=== PATIENT | male | born 1980 | race African-American/Black ===

== ENCOUNTER 2016-09-07 16:19 | Observation (INO) | payer BC, OTHER ==
[~2016-09-07] VITALS: Ht 188 cm; Wt 140.0 kg
[2016-09-07] VITALS (8 sets, daily range): BP systolic 137–177; BP diastolic 79–99; PULSE 63–93; RESP 18–20; TEMP 97.6–98.7; O2SAT 98–100
[~2016-09-07 16:19] MED LIST: PENI500T PO; TYLE3 PO; Z.0.NO CURRENT MEDS
--- NOTE | 2016-09-07 16:31 | PD ---
HPI Chief Complaint: Chest Pain Time Seen by Provider: 16:31 Travel History International Travel<30 days: No Contact w/Intl Traveler<30days: No Traveled to known affect area: No History of Present Illness HPI 36 YO M presents to the ED for evaluation of sharp, intermittent central chest pain. Asymptomatic on presentation. Comes on at rest,lasts ~30 minutes, resolves spontaneously, alleviated by laying down. Accompanied by nausea, diaphoresis, SOB, palpitations. Patient has never had a cardiac workup. Current smoker, has "never" seen a physician. Endorses multiple family members with MIs. Patient sought treatment today after an episode this AM. PFS Social History Alcohol Use: No Tobacco Use: Yes (1/2 PPD X 10 YEARS) Substance Use: No Allergies-Medications (Allergen,Severity, Reaction): Coded Allergies: No Known Allergies (Verified , 09/07/16) Reported Meds & Prescriptions Reported Meds & Active Scripts Active Tylenol #3 (Acetaminophen/Codeine Phosphate) 300 Mg/30 Mg Tab 1 Tab PO Q6HPRN FOR PAIN Pen Vk (Penicillin V Potassium) 500 Mg Tab 500 Mg PO QID Reported No Current [place]s (Miscellaneous Medication[place] [facility] [place] Except as stated in HPI: all other systems reviewed are Neg Physical Exam Narrative GENERAL: Obese black male in no acute distress. SKIN: Focused skin assessment warm/dry. HEAD: Normocephalic. EYES: No scleral icterus. No injection or drainage. NECK: Supple, trachea midline. No JVD or lymphadenopathy. CARDIOVASCULAR: Regular rate and rhythm without murmurs, gallops, or rubs. 2+ DP radial pulses bilaterally. CHEST: Nontender throughout without deformity or crepitus. No retractions or use of accessory muscles. RESPIRATORY: Breath sounds clear and equal bilaterally. No accessory muscle use. GASTROINTESTINAL: Abdomen soft, protuberant, non-tender, nondistended. Active bowel sounds. MUSCULOSKELETAL: No cyanosis, or edema. BACK: Nontender without obvious deformity. No CVA tenderness. Data Data Last Documented VS Vital Signs Date Time Temp Pulse Resp B/P Pulse Ox O2 Delivery O2 Flow Rate FiO2 09/07/16 16:20 98.3 93 20 177/99 98 Orders Electrocardiogram (09/07/16 16:31) Ckmb (Isoenzyme) Profile (09/07/16 16:31) Complete Blood Count With Diff (09/07/16 16:31) Comprehensive Metabolic Panel (09/07/16 16:31) Magnesium (Mg) (09/07/16 16:31) Prothrombin Time / Inr (Pt) (09/07/16 16:31) Act Partial Throm Time (Ptt) (09/07/16 16:31) Troponin I (09/07/16 16:31) Chest, Single Ap (09/07/16 16:31) Ecg Monitoring (09/07/16 16:31) Bilateral Bp Monitoring (09/07/16 16:31) Iv Access Insert/Monitor (09/07/16 16:31) Oximetry (09/07/16 16:31) Sodium Chloride 0.9% Flush (Ns Flush) (09/07/16 16:45) Lipase (09/07/16 16:31) CKMB (09/07/16 17:14) CKMB% (09/07/16 17:14) Labs Laboratory Tests Test 09/07/16 17:14 White Blood Count 6.7 TH/MM3 Red Blood Count 5.18 MIL/MM3 Hemoglobin 14.7 GM/DL Hematocrit 42.8 % Mean Corpuscular Volume 82.6 FL Mean Corpuscular Hemoglobin 28.4 PG Mean Corpuscular Hemoglobin 34.3 % Concent Red Cell Distribution Width 14.2 % Platelet Count 204 TH/MM3 Mean Platelet Volume 9.0 FL Neutrophils (%) (Auto) 56.7 % Lymphocytes (%) (Auto) 32.7 % Monocytes (%) (Auto) 8.3 % Eosinophils (%) (Auto) 1.8 % Basophils (%) (Auto) 0.5 % Neutrophils # (Auto) 3.8 TH/MM3 Lymphocytes # (Auto) 2.2 TH/MM3 Monocytes # (Auto) 0.6 TH/MM3 Eosinophils # (Auto) 0.1 TH/MM3 Basophils # (Auto) 0.0 TH/MM3 CBC Comment DIFF FINAL Differential Comment Prothrombin Time 11.4 SEC Prothromb Time International 1.0 RATIO Ratio Activated Partial 31.7 SEC Thromboplast Time Sodium Level 140 MEQ/L Potassium Level 3.6 MEQ/L Chloride Level 107 MEQ/L Carbon Dioxide Level 25.7 MEQ/L Anion Gap 7 MEQ/L Blood Urea Nitrogen 9 MG/DL Creatinine 1.06 MG/DL Estimat Glomerular Filtration 96 ML/MIN Rate Random Glucose 99 MG/DL Calcium Level 8.6 MG/DL Magnesium Level 1.9 MG/DL Total Bilirubin 0.4 MG/DL Aspartate Amino Transf 18 U/L (AST/SGOT) Alanine Aminotransferase 31 U/L (ALT/SGPT) Alkaline Phosphatase 126 U/L Total Creatine Kinase 130 U/L Creatine Kinase MB 0.9 NG/ML Troponin I LESS THAN 0.02 NG/ML Total Protein 7.8 GM/DL Albumin 3.6 GM/DL Lipase 121 U/L [facility] Medical Decision Making Medical Screen Exam Complete: Yes Emergency Medical Condition: Yes Differential Diagnosis chest pain versus ACS versus GERD versus PUD versus other Narrative Course 36 YO M presents to the ED for evaluation of 7/10, sharp, intermittent central chest pain. Asymptomatic on presentation. Comes on at rest,lasts ~30 minutes, resolves spontaneously, alleviated by laying down. Accompanied by nausea, diaphoresis, SOB, palpitations. Patient has never had a cardiac workup. Current smoker, has "never" seen a physician. Endorses multiple family members with MIs. Patient sought treatment today after an episode this AM. Patient's hypertensive on presentation. Physical exam reveals an obese black male in no acute distress. Chest CTAB, abdomen soft, nontender, no lower extremity edema. EKG rate 65, sinus rhythm, W[place] interval 173, QRS 96, QTC 394. Normal axis. No ST changes. Reviewed by Dr. Chapman. CBC, CMP unremarkable. Cardiac enzymes negative x 1. CXR: Lungs clear per radiology read. I discussed the results of the workup with the patient. Given his multiple risk factors, plan to admit to the [facility] for further evaluation. Patient is agreeable to this. Please see [facility] notes for disposition. Mary Roche Sep 07, 2016 16:31
[2016-09-07] MEDS ORDERED: SODIUM CHLORIDE 0.9% FLUSH 10 ML FLUSH IVF PRN (16:45)
--- NOTE | 2016-09-07 17:01 | RADRPT ---
EXAM DATE/TIME: 09/07/2016 16:39 [facility] COMPARISON: No previous studies available for comparison. INDICATIONS : Chest pain. MEDICAL HISTORY : None. SURGICAL HISTORY : None. ENCOUNTER: Initial ACUITY: 1 day PAIN SCORE: 7/10 LOCATION: Bilateral chest FINDINGS: A single view of the chest demonstrates the lungs to be symmetrically aerated without evidence of mas s, infiltrate or effusion. The cardiomediastinal contours are unremarkable. Osseous structures are intact. CONCLUSION: The lungs are clear. Nickolas Coppola MD on September 07, 2016 at 16:58 Board Certified Radiologist. This report was verified electronically.
[2016-09-07 17:33] LABS: AUTOMATED NEUTROPHIL # 3.8 TH/MM3 (1.8-7.7); BASOPHIL % 0.5 % (0.0-2.0); EOSINOPHIL # 0.1 TH/MM3 (0-0.4); EOSINOPHIL % 1.8 % (0.0-4.0); HEMATOCRIT 42.8 % (39.0-51.0); HEMO FLAGS DIFF FINAL; LYMPH % 32.7 % (9.0-44.0); LYMPHOCYTE # 2.2 TH/MM3 (1.0-4.8); MEAN CELL VOLUME 82.6 FL (80.0-100.0); MEAN CORPUSCULAR HEMOGLOBIN 28.4 PG (27.0-34.0); MEAN CORPUSCULAR HGB CONC 34.3 % (32.0-36.0); MONO % 8.3 % (0.0-8.0); NEUT % 56.7 % (16.0-70.0); PLATELET COUNT 204 TH/MM3 (150-450); RED BLOOD COUNT 5.18 MIL/MM3 (4.50-5.90); RED CELL DISTRIBUTION WIDTH 14.2 % (11.6-17.2); WHITE BLOOD COUNT 6.7 TH/MM3 (4.0-11.0)
[2016-09-07 17:42] LABS: APTT (PATIENT) 31.7 SEC (24.3-30.1); PROTHROMBIN TIME - PATIENT 11.4 SEC (9.8-11.6)
[2016-09-07 17:46] LABS: ANION GAP 7 MEQ/L (5-15); AST (GOT) 18 U/L (15-37); BICARBONATE 25.7 MEQ/L (21.0-32.0); BLOOD UREA NITROGEN 9 MG/DL (7-18); CHLORIDE 107 MEQ/L (98-107); GLOMERULAR FILTRATION RATE 96 ML/MIN (>89); MAGNESIUM 1.9 MG/DL (1.5-2.5); POTASSIUM 3.6 MEQ/L (3.5-5.1); SODIUM (NA) 140 MEQ/L (136-145)
[2016-09-07 17:51] LABS: ALKALINE PHOSPHATASE 126 U/L (45-117); ALT (GPT) 31 U/L (12-78); CREATINE KINASE 130 U/L (39-308); TOTAL BILIRUBIN ADULT 0.4 MG/DL (0.2-1.0)
[2016-09-07 18:04] LABS: CKMB 0.9 NG/ML (0.5-3.6)
[2016-09-07] MEDS ORDERED: SODIUM CHLORIDE 0.9% FLUSH 10 ML FLUSH IV FLUSH PRN (18:15)
[2016-09-07] MEDS ORDERED: NITROGLYCERIN 0.4 MG SL 25 TABS/BTL SL PRN (18:30)
[2016-09-07] MEDS ORDERED: ACETAMINOPHEN 500 MG CPLT PO PRN (18:30)
[2016-09-07] MEDS ORDERED: ONDANSETRON HCL 4 MG/2 ML VIAL IV PRN (18:30)
[2016-09-07] MEDS ORDERED: KETOROLAC TROMETHAMINE 30 MG/ML (IVP) VIAL IV PUSH ONE (19:00)
--- NOTE | 2016-09-07 19:29 | HHI.HP ---
HPI Primary Care Physician No Primary Care Physician Chief Complaint Chest pain History of Present Illness 36-year-old male with no known significant medical history presents to emergency room for further evaluation chest pain. Onset one year, stating last couple of weeks pain has increased in severity and frequency. Episodes generally occur weekly. Today's episode occurred at 3:30 PM. Location substernal. Characterized as a quick, sharp, stabbing, severe pain rated 8/10. Nonexertional component. No radiation. Duration varies from 510 minutes. Associated symptoms included shortness of breath, nausea, and diaphoresis. After severe pain eases up gradually, a lingering burning pain follows until the following day. No known precipitating or relieving factors. Currently rates pain 3/10. Review of Systems General: No fatigue,weakness, fever, chills, recent illness, or change in appetite. Has been in his general state of health. Currently working 2 jobs, due to work schedule eating mostly fast food past 6-8 months. Contributes weight gain due to unhealthy eating habits. HEENT: Occasional frontal headaches occurring after episode as stated above. Headache generally relieved with Aleve. No current KNIGHT. No vision changes or blurred vision. CV: As stated above. RESP: No SOB or history asthma GI: No nausea, vomiting, bowel changes, diarrhea, constipation, or blood in the stool. Occasional acid reflux symptoms, has never tried any [id number] remedies. : No dysuria, urgency, or frequency EXT: Dependent bilateral pedal edema after working relieved with elevation of legs once home. MS: No discomfort, change in ROM, or injury. NEURO: No motor/sensory deficits PSYCH: Current situational stress he relates to working 2 jobs. Denies anxiety or depression. Past Family Social History Allergies: Coded Allergies: No Known Allergies (Verified , 09/07/16) Past Medical History None Past Surgical History [place] teeth extraction-end of July 2016 (reports Dentist has ordered antibiotics for the next 2 months) Reported Medications Active Antibiotic (name unknown) BID No vitamins or herbal supplements. Active Ordered Medications Current Medications Medications (Trade) Dose Ordered Sig/Shawn Route Start Time Stop Time Status Last Admin (NS Flush) 2 ml UNSCH PRN IV FLUSH 09/07/16 18:15 (NS Flush) 2 ml BID IV FLUSH 09/07/16 21:00 (Tylenol) 500 mg Q4H PRN PO 09/07/16 18:30 (Zofran Inj) 4 mg Q6H PRN IV 09/07/16 18:30 (Nitrostat Sl) 0.4 mg Q5M PRN SL 09/07/16 18:30 (Aspirin) 325 mg DAILY PO 09/08/16 09:00 Family History Noncontributory for early onset cardiovascular disease, both mother and father have hypertension. Social History No known diabetes, hyperlipidemia, or hypertension. Endorses a few years ago had a physical for work. At that time, told he had high blood pressure. Current smoker 3/4 pack/daily. Socially drinks alcohol. Occasional marijuana. Denies any other illegal drug use. Endorses unhealthy eating habits and does not exercise regularly. Currently working 2 jobs. Past cardiac testing None Physical Exam Vital Signs Vital Signs Date Time Temp Pulse Resp B/P Pulse Ox O2 Delivery O2 Flow Rate FiO2 09/07/16 17:00 Room Air 09/07/16 16:20 98.3 93 20 177/99 98 Physical Exam GENERAL: Alert WN, WD, NAD, pleasant and friendly, obese male HEAD: NC, AT CV: RRR, without murmur, rub, gallop, no JVD, S1-S2 no S3-S4. RESP: Clear lungs throughout bilateral, no crackles, wheeze, rhonchi, symmetrical chest rise, nonlabored, able to speak in full sentences ABD: Soft, NT, ND, no masses, positive bowel tones EXT: Pulses +24, no dependent edema MS: Chest wall tenderness reproduced upon palpation. Normal tone 4 extremities , no obvious deformities, full range of motion NEURO: CN II through CN XII grossly intact, motor strength 5/5, gait WNL PSYCH: A+O 3, pleasant affect, appropriate speech, appropriate mood and affect , insight and judgment SKIN: Normal turgor, normal texture, even hair distribution Laboratory Laboratory Tests Test 09/07/16 17:14 White Blood Count 6.7 Red Blood Count 5.18 Hemoglobin 14.7 Hematocrit 42.8 Mean Corpuscular Volume 82.6 Mean Corpuscular Hemoglobin 28.4 Mean Corpuscular Hemoglobin 34.3 Concent Red Cell Distribution Width 14.2 Platelet Count 204 Mean Platelet Volume 9.0 Neutrophils (%) (Auto) 56.7 Lymphocytes (%) (Auto) 32.7 Monocytes (%) (Auto) 8.3 Eosinophils (%) (Auto) 1.8 Basophils (%) (Auto) 0.5 Neutrophils # (Auto) 3.8 Lymphocytes # (Auto) 2.2 Monocytes # (Auto) 0.6 Eosinophils # (Auto) 0.1 Basophils # (Auto) 0.0 CBC Comment DIFF FINAL Differential Comment Prothrombin Time 11.4 Prothromb Time International 1.0 Ratio Activated Partial 31.7 Thromboplast Time Sodium Level 140 Potassium Level 3.6 Chloride Level 107 Carbon Dioxide Level 25.7 Anion Gap 7 Blood Urea Nitrogen 9 Creatinine 1.06 Estimat Glomerular Filtration 96 Rate Random Glucose 99 Calcium Level 8.6 Magnesium Level 1.9 Total Bilirubin 0.4 Aspartate Amino Transf 18 (AST/SGOT) Alanine Aminotransferase 31 (ALT/SGPT) Alkaline Phosphatase 126 Total Creatine Kinase 130 Creatine Kinase MB 0.9 Troponin I LESS THAN 0.02 Total Protein 7.8 Albumin 3.6 Lipase 121 Result Diagram: 09/07/16 1714 09/07/16 1714 Imaging Last Impressions Chest X-Ray 09/07/16 1631 Signed Impressions: Service Date/Time: Wednesday, September 07, 2016 16:39 - CONCLUSION: The lungs are clear. Nickolas Coppola MD Course EKG Normal sinus rhythm, normal axis, no ST or T-segment changes Assessment and Plan Assessment and Plan #! Atypical chest painadmitted to chest pain center. Ruled out with 3 sets of EKGs, cardiac enzymes, and monitored overnight. Will be seen and evaluated by Dr. Cooper Leal in a.m. Reassurance provided chest discomfort atypical for cardiac pain cardiac pain. Discussed likely will complete an exercise stress test in a.m. Patient is agreeable to plan of care. #2 Musculoskeletal pain30 mg IV 1 dose #3 Hypertensionmildly hypertensive, will continue to monitor and consider ordering lisinopril 10 mg daily. Discussed in length importance of following a low sodium diet, weight loss, and increasing his daily activity. Explained importance of tight blood pressure control and importance of follow-up with PCP. Encouraged keeping a blood pressure log. #4 Tobacco usestrongly encouraged and stressed importance of tobacco sensation. Discussed and counseled patient to quit smoking including marijuana. Discussed importance of establishing with a PCP for basic laboratory workup, preventative medicine, and medical management. Education provided regarding GERD symptoms, preventative treatment, and [id number] remedies available. Mae Golden Sep 07, 2016 19:29
[2016-09-07] MEDS ORDERED: cloNIDine HCL 0.1 MG TAB PO PRN (19:30)
[2016-09-07] MEDS: SODIUM CHLORIDE 0.9% FLUSH 10 ML FLUSH IV FLUSH SCH (20:33)
[2016-09-07] MEDS: LISINOPRIL 10 MG TAB PO SCH (20:34)
[2016-09-07 20:46] LABS: CREATINE KINASE 140 U/L (39-308)
[2016-09-07 20:59] LABS: CKMB LESS THAN 0.5 NG/ML (0.5-3.6)
[2016-09-08 00:03] LABS: CREATINE KINASE 135 U/L (39-308)
[2016-09-08 00:15] LABS: CKMB LESS THAN 0.5 NG/ML (0.5-3.6)
[2016-09-08 03:51] VITALS: PULSE 61
[2016-09-08 04:18] VITALS: BP 110/74; PULSE 57; RESP 17; TEMP 97.8; O2SAT 100
[2016-09-08 07:09] VITALS: BP 142/65; PULSE 56; RESP 16; TEMP 97.6; O2SAT 99
[2016-09-08 07:45] VITALS: O2SAT 99
[2016-09-08] MEDS ORDERED: ASPIRIN 325 MG TAB PO SCH (09:00)
[2016-09-08] MEDS: LISINOPRIL 10 MG TAB PO SCH (09:57)
[2016-09-08] MEDS: SODIUM CHLORIDE 0.9% FLUSH 10 ML FLUSH IV FLUSH SCH (09:57)
[2016-09-08 10:08] VITALS: PULSE 52
--- NOTE | 2016-09-08 14:27 | RADRPT ---
EXAM DATE/TIME: 09/08/2016 11:06 [facility] COMPARISON: CHEST SINGLE AP, September 07, 2016, 16:39. INDICATIONS : Substernal chest pain. Angina Abnormal EKG. DOSE: 34.7 mCi Tc99m Myoview at stress 11 mCi Tc99m Myoview at rest REST HEART RATE: 85 BPM TARGET HEART RATE: 157 BPM MAX HEART RATE: 170 BPM REST BLOOD PRESSURE: 126/82 mmHg MAX BLOOD PRESSURE: 130/82 mmHg EJECTION FRACTION: 64% MEDICAL HISTORY : None SURGICAL HISTORY : None. ENCOUNTER: Initial ACUITY: 1 day PAIN SCALE: 8/10 LOCATION: Substernal chest TECHNIQUE: The patient underwent upright treadmill exercise in the chest pain center. Continuous ECG tracing wa s monitored during stress. Gated SPECT imaging was performed after stress, and conventional SPECT im aging was performed at rest. The examination was performed on a SPECT/CT scanner, both attenuation-c orrected and non-corrected datasets were reviewed. FINDINGS: DISTRIBUTION: The maximum perfused segment at stress is in the septal wall. PERFUSION STUDY: The pattern of perfusion at stress is within normal limits with the exception of attenuation artifact . GATED STUDY: There is intact wall motion and thickening without hypokinetic or dyskinetic segments. CONCLUSION: No appreciable ischemia. RISK CATEGORY: Low (<1% Annual Mortality Rate) Alexandre Senior MD on September 08, 2016 at 14:05 Board Certified Radiologist. This report was verified electronically.
--- NOTE | 2016-09-08 14:51 | EKG ---
Date Performed: 09/07/2016 Time Performed: 20:13:40 PTAGE: 36 years EKG: Sinus rhythm NORMAL ECG PREVIOUS TRACING : 09/07/2016 17.03 Since previous tracing, no significant change noted DOCTOR: Cooper Leal Interpretating Date/Time 09/08/2016 14:49:44
--- NOTE | 2016-09-08 14:52 | EKG ---
Date Performed: 09/07/2016 Time Performed: 17:03:32 PTAGE: 36 years EKG: Sinus rhythm NORMAL ECG NO PREVIOUS TRACING DOCTOR: Cooper Leal Interpretating Date/Time 09/08/2016 14:49:49
--- NOTE | 2016-09-08 14:52 | EKG ---
Date Performed: 09/07/2016 Time Performed: 23:41:06 PTAGE: 36 years EKG: Sinus rhythm NORMAL ECG PREVIOUS TRACING : 09/07/2016 20.13 Since previous tracing, no significant change noted DOCTOR: Cooper Leal Interpretating Date/Time 09/08/2016 14:50:28
--- NOTE | 2016-09-08 14:53 | TR ---
Date Performed: 09/08/2016 Time Performed: 12:24:23 DOCTOR: Cooper Leal DRUG LIST: CLINICAL HISTORY: CHEST LAUREN N REASON FOR TEST: REASON FOR ENDING: OBSERVATION: CONCLUSION: KYLEE PROTOCOL. NO CP. STOPPED WHEN MAXIMUM HEART RATE REACHED SECONDARY TO SHORTNES S OF BREATH AND LEG FATIGUE.Maximum GZ=146 % Max HR Achieved=93.0% Maximum BG=825/82 Total Exercise T [place]=9:33 COMMENTS: ST depression present resolving immediately in the recovery period.This probably repre sents a false positive. will repeat with nuclear imaging
--- NOTE | 2016-09-08 14:54 | HHI.DCPOC ---
Discharge Care Plan Diagnosis: (1) Chest pain (2) Tobacco abuse Goals to Promote Your Health * To prevent worsening of your condition and complications * To maintain your health at the optimal level Directions to Meet Your Goals Take your medications as prescribed Follow your dietary instruction Follow activity as directed Keep your appointments as scheduled Take your immunizations and boosters as scheduled If your symptoms worsen call your PCP, if no PCP go to Urgent Care Center or Emergency Room Smoking is Dangerous to Your Health. Avoid second hand smoke Call the 24-hour hour crisis hotline for domestic abuse at Gurvinder Colbert Sep 08, 2016 14:54
--- NOTE | 2016-09-08 14:56 | TR ---
Date Performed: 09/08/2016 Time Performed: 09:15:48 DOCTOR: Cooper Leal DRUG LIST: CLINICAL HISTORY: CHEST PAIN REASON FOR TEST: REASON FOR ENDING: OBSERVATION: CONCLUSION: KYLEE PROTOCOL. ADMITS TO CHEST DISCOMFORT 8/10 BEGAN 4TH STAGE, ONE MINUTE IN RECOV TYESHA 6/10, 2 MINUTES 3/10, 4 MINUTES IN RECOVERY PAIN RELIEVED. Maximum QX=222 % Max HR Achieved=92.0 % Maximum QB=165/80 Total Exercise Time=10:02 COMMENTS: ST depression present at peak exercise resolving immediately in recovery. Nuclear astrid ging pending
== END 2016-09-08 15:24 | disposition home or self-care (01) ==
LOC: NEPE 16:19 → NEDA 18:10 → NEPFCDU 19:51
DX: R07.89 Other chest pain (principal); M79.1 Myalgia; R06.02 Shortness of breath; R11.0 Nausea; R61 Generalized hyperhidrosis; I10 Essential (primary) hypertension; K21.9 Gastro-esophageal reflux disease without esophagitis; F17.200 Nicotine dependence, unspecified, uncomplicated; F12.90 Cannabis use, unspecified, uncomplicated; E66.9 Obesity, unspecified; Z71.3 Dietary counseling and surveillance; Z68.39 Body mass index [BMI] 39.0-39.9, adult
CPT/HCPCS: 71010; 78452; 80053; 82550; 82552; 83690; 83735; 84484; 85025; 85610; 85730; 93005; 93017; 99285; A9502; G0378